=== PATIENT | female | born 2000 | race Caucasian/White ===

== ENCOUNTER 2021-06-12 19:23 | Emergency (ER) | payer MEDICAID ==
[~2021-06-12] VITALS: Ht 160 cm; Wt 54.4 kg
[2021-06-12 19:31] VITALS: BP 152/109
[2021-06-12 19:41] VITALS: BP 147/102
--- NOTE | 2021-06-12 19:41 | NUR ---
PT TO BED 10
[2021-06-12] MEDS ORDERED: NACL 0.9% 1,000 ML IV ONE (20:10)
--- NOTE | 2021-06-12 20:22 | NUR ---
LAB AT BEDSIDE TO COLLECT BLOOD SAMPLE.
[2021-06-12 21:04] LABS: ANION GAP 13.4 (8-16); CHLORIDE 104 mmol/L (98-107); POTASSIUM 3.4 mmol/L (3.5-5.1); SODIUM SERUM 140 mmol/L (136-145)
[2021-06-12 21:18] LABS: ALBUMIN 4.2 g/dL (3.4-5.0); ASPARTATE AMINOTRANSFERASE 20 U/L (15-37); CREATININE 0.9 mg/dL (0.6-1.3); GFR ARICAN-AMERICAN 103 mL/min (>90); GLUCOSE 147 mg/dL (74-106); TOTAL BILIRUBIN 1.3 mg/dL (0.0-1.0); UREA NITROGEN, BLOOD 10 mg/dL (7-18)
[2021-06-12 21:19] LABS: ACETAMINOPHEN < 0.5 ug/ml (10-30); SALICYLATE < 2.8 mg/dL (2.8-20.0)
[2021-06-12 21:38] LABS: BASOPHILS % (AUTO) 0.2 % (0.0-2.0); HEMATOCRIT 35.5 % (36-48); HEMOGLOBIN 11.8 g/dL (12.0-16.0); LYMPHOCYTES # (AUTO) 0.7 K/uL (2.5-16.5); LYMPHOCYTES % (AUTO) 7.1 % (20.5-51.1); MEAN CORPUSCULAR HEMOGLOBIN 28 pg (27-31); MEAN CORPUSCULAR HGB CONC 33 g/dL (33-37); MEAN CORPUSCULAR VOLUME 84.6 fL (80-94); MONOCYTES # (AUTO) 0.7 K/uL (0.8-1.0); MONOCYTES % (AUTO) 6.9 % (1.7-9.3); NEUTROPHILS # (AUTO) 8.3 K/uL (1.8-7.7); NEUTROPHILS % (AUTO) 85.8 % (42.2-75.2); PLATELET COUNT (AUTO) 165 K/uL (140-450); RED BLOOD CELL COUNT(AUTO) 4.19 MIL/uL (4.20-5.40); RED CELL DISTRIBUTION WIDTH 14.8 % (11.6-13.7); WHITE BLOOD COUNT (AUTO) 9.7 K/uL (4.5-11.0)
[2021-06-12] MEDS ORDERED: POTASSIUM CHLORIDE 10 MEQ TABER PO ONE (22:10)
--- NOTE | 2021-06-12 22:30 | NUR ---
LIANNE/APARNA SWABBED AND WALKED TO LAB
--- NOTE | 2021-06-12 22:56 | NUR ---
# 15 FR Urinary catheter inserted utilizing sterile technique. Immediate return of 150 ml CLOUDY YELLOW urine noted. Urine sample collected and sent to lab. Pt tolerated procedure WELL.
[2021-06-12 23:13] LABS: APPEARANCE,URINE CLEAR (CLEAR); BILIRUBIN,URINE NEGATIVE (NEGATIVE); BLOOD, URINE 3+ (NEGATIVE); COLOR,URINE YELLOW (YELLOW); LEUKOCYTE ESTERASE ,URINE 2+ (NEGATIVE); NITRITE, URINE NEGATIVE (NEGATIVE); PH,URINE 6.5 (5.0-9.0); UGLUCOSE NEGATIVE (NEGATIVE)
[2021-06-12 23:33] LABS: BARBITURATE, URINE NEGATIVE ng/ml (NEG <=200); BENZODIAZEPINE, URINE NEGATIVE ng/mL (NEG <=200); CANNABINOID, URINE POSITIVE ng/mL (NEG <=50); COCAINE, URINE NEGATIVE ng/mL (NEG <=300); OPIATE, URINE NEGATIVE ng/mL (NEG <=2000); PHENCYCLIDINE SCREEN,URINE NEGATIVE ng/mL (NEG <=25)
[2021-06-12 23:54] LABS: RBC,URINE 0-5 /HPF (0-5)
[2021-06-13] MEDS ORDERED: cephALEXin 500 MG CAP PO ONE (04:20)
[2021-06-13] MEDS ORDERED: ceFAZolin 1,000 MG VIAL ONE (04:25)
[2021-06-13] MEDS ORDERED: LORazepam 2 MG/ML VIAL IVP ONE (04:40)
--- NOTE | 2021-06-13 06:13 | NUR ---
Dr. Kruse examining patient.
--- NOTE | 2021-06-13 06:42 | NUR ---
0519 pt restless and attempting to get out of bed to leave. multiple unsuccessful attempts to obtain demographic information from pt, a/ox1. pt is confused, rambling to herself, and unable to follow directions. made aware.
--- NOTE | 2021-06-13 06:45 | NUR ---
PT SEEMS MORE COHERENT AND ABLE TO ANSWER SOME QUESTIONS. WHEN ASKED PT REFERS TO HERSELF DENISE SALDAÑA, BORN IN 2000. PT IS STILL UNABLE TO ANSWER OTHER A/O QUESTIONS. PT GAVE A POSSIBLE POC FOR MOTHER, ALEXANDER AT [phone]. 1 MESSAGE LEFT AT THIS TIME.
--- NOTE | 2021-06-13 06:50 | NUR ---
PT IS A/OX1 AND CONFUSED. PT IS MENTIONING THAT SHE "CAN'T STAY HERE" AND "NEED TO LEAVE;" PT'S ROOM IS NEAR THE EXIT; PT IS CONSIDERED A FLIGHT RISK.
--- NOTE | 2021-06-13 07:13 | NUR ---
REPORT GIVEN TO RENE ALATORRE
--- NOTE | 2021-06-13 07:16 | NUR ---
RECEIVED REPORT FROM DEBRA LÓPEZ, TRANSFER OF CARE AT THIS TIME, RECEIVED PATIENT AWAKE IN BED, A/OX2, KNOWS THEIR NAME STATES THAT ITS "DENISE SALDAÑA" AND THAT SHE IS "19 YEARS OLD", DOES NOT KNOW THE DAY, DATE, OR WHERE SHE IS. GIVEN NUMBER FOR PATIENT'S APPARENT MOTHER "ALEXANDER" [phone].
--- NOTE | 2021-06-13 07:23 | NUR ---
OFFERED PT A CUP OF WATER, PT APPEARS COOPERATIVE.
--- NOTE | 2021-06-13 07:31 | NUR ---
ATTEMPTED TO CALL ALEXANDER, NO RESPONSE GIVEN
--- NOTE | 2021-06-13 07:49 | NUR ---
PATIENT MOVED TO ER BED 5
--- NOTE | 2021-06-13 07:50 | NUR ---
REPORT GIVEN TO BRANDAN VARGAS, PT TRANSFERRED FROM BED 10 TO BED 5
--- NOTE | 2021-06-13 08:30 | NUR ---
PATIENT IS SITTING UP ON BED, EATING BREAKFAST. NO SIGNS OF DISTRESS NOTED.
--- NOTE | 2021-06-13 08:50 | NUR ---
PATIENT SPOKE TO PSYCHIATRIST VIA TELEPSYCH. RECIEVED NEW ORDERS FOR ZYPREXA 5MG PO NOW AND EVERY [address] LARRY WILL START [address] LARRY MADE AWARE.
--- NOTE | 2021-06-13 10:03 | NUR ---
DR LARRY AT BEDSIDE TO EVALUATE THE PATIENT.
[2021-06-13] MEDS ORDERED: OLANZapine 5 MG ODT SL ONE ×2 (10:40→19:00)
--- NOTE | 2021-06-13 11:15 | NUR ---
PATIENTS MOM CAME TO VISIT PATIENT. PATIENT IS INTERACTING APPROPIATELY. PATIENT HAS NEEDS MET BY STAFF.
--- NOTE | 2021-06-13 12:17 | NUR ---
PATIENT WAS HANDED LUNCH TRAY. PATIENT IS SITTING UP ON BED EATING WELL.
--- NOTE | 2021-06-13 13:21 | NUR ---
SPOKE WITH SAIGE FROM [facility] FOR PLACEMENT. SHE WILL CALL BACK WITH ROOM NUMBER.
--- NOTE | 2021-06-13 13:35 | NUR ---
PT ATTEMPTED TO RUN. PT RUN TO THE PARKING LOT. SECURITY WAS CALLED. PATIENT WAS REORIANTED BACK TO HER BED.
[2021-06-13] MEDS ORDERED: WATER STERILE 10 ML MC ONE (13:50)
[2021-06-13] MEDS ORDERED: ZIPRASIDONE MESYLATE 20 MG/ML VIAL IM ONE (13:50)
--- NOTE | 2021-06-13 14:12 | NUR ---
PT 5150 HOLD WAS FAXED AT 1400 TO SAIGE AT [facility] FOR PT PLACEMENT. PHONE NUMBER [phone] FAX NUMBER [phone].
--- NOTE | 2021-06-13 15:39 | NUR ---
PATIENT IS ASLEEP IN BED, WITH NO SIGNS OF DISTRESS. VITAL SIGNS NORMAL. NEEDS MET.
--- NOTE | 2021-06-13 16:02 | NUR ---
SPOKE WITH ISRAEL FROM [facility] [phone]. PT IS GOING TO [facility] ROOM 143 B, ADDMITING DR MOLINA AND WILL BE TRANSPORTED AFTER 7 PM. AND DIRECT PHONE NUMBER FOR NURSE TO NURSE REPORT IS [phone]. WILL CALL AND [facility].
--- NOTE | 2021-06-13 16:09 | NUR ---
[facility] called and accepted patient to their facility Patient is going to [facility] Unit Room - 143 - B Accepting physician - Dr. Roman Nurse to nurse report - [phone] Please have patient arrive after 7:00pm
--- NOTE | 2021-06-13 17:47 | NUR ---
CALLED [facility] TO GIVE REPORT BUT CHARGE NURSE JOSE DID NOT WANT TO GET REPORT AND HE STATED " WE ARE EXPECTING THE PT AFTER 7 PM SO I DON'T WANT TO GET REPORT NOW, PLEASE CALL AT 7 PM". WILL CALL AT 7 PM. [phone].
--- NOTE | 2021-06-13 18:39 | NUR ---
SPOKE TO ALEXANDER, MOM OF PATIENT, TO INFORM HER OF TRANSFER TO [facility].
--- NOTE | 2021-06-13 19:20 | NUR ---
GAVE REPORT TO BARBRA LÓPEZ, SHE WILL BE THE PRIMERY NURSE FOR THE PATIENT.
[2021-06-13 19:33] VITALS: BP 101/62
--- NOTE | 2021-06-13 19:34 | NUR ---
Patient to be transferred to [facility]. Is being transferred due to HIGHER LEVEL OF CARE. Receiving facility has accepting physician and available space. ER physician has signed transfer form. Patient or responsible democrat has agreed to transfer and signed form. Patient belongings inventoried and will be sent with patient. Copy of nursing notes, lab reports, EKG, Physicians Orders and X-rays to be sent with patient. Report called to CHARGE NURSE at receiving facility. [facility] ambulance service has been called for transfer. ETA is [id number].
== END 2021-06-13 19:34 ==
LOC: EDBD 19:23 → MED 19:23
DX: G93.40 Encephalopathy, unspecified (principal); Z20.822 Contact with and (suspected) exposure to COVID-19; F15.90 Other stimulant use, unspecified, uncomplicated; F12.90 Cannabis use, unspecified, uncomplicated; R45.88 Nonsuicidal self-harm; R00.0 Tachycardia, unspecified; R41.82 Altered mental status, unspecified
CPT/HCPCS: 36415; 80053; 80305; 81001; 81025; 85025; 87086; 87635; 93005; 96361; 96365; 96372; 96375; 99291; 99292; C9803; G0480; G0482; J0690; J2060; J3486; J7030